=== PATIENT | female | born 1930 | race Caucasian/White ===

== ENCOUNTER 2019-05-16 12:52 | Emergency (ER) | payer MEDICARE, BC ==
[~2019-05-16] VITALS: Ht 165.1 cm; Wt 81.6 kg
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
[2019-05-16] MEDS ORDERED: HYDROCODONE/APAP 5-325MG TABLET PO ONE (13:15)
[2019-05-16] MEDS ORDERED: HYDROCODONE/APAP 5-325MG TABLET ONE (13:20)
--- NOTE | 2019-05-16 13:26 | NUR ---
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
--- NOTE | 2019-05-16 13:45 | NUR ---
PT ABLE TO TOLERATE PO MEDS ORDERED ERMD AT BEDSIDE FOR UPDATE
--- NOTE | 2019-05-16 13:57 | NUR ---
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
[2019-05-16 14:05] VITALS: BP 132/89
== END 2019-05-16 14:06 | disposition home or self-care (01) ==
LOC: ER 12:52
DX: S80.01XA Contusion of right knee, initial encounter (principal); M25.511 Pain in right shoulder; E11.9 Type 2 diabetes mellitus without complications; Z86.73 Personal history of transient ischemic attack (TIA), and cerebral infarction without residual deficits; Z88.1 Allergy status to other antibiotic agents; W01.0XXA Fall on same level from slipping, tripping and stumbling without subsequent striking against object, initial encounter; Y93.89 Activity, other specified; Y92.89 Other specified places as the place of occurrence of the external cause; Y99.8 Other external cause status
CPT/HCPCS: 73030; 73590